=== PATIENT | male | born 1980 | race Caucasian/White ===

== ENCOUNTER → 2024-02-16 | Outpatient (REF) ==
[2024-02-18 12:12] LABS: HERPES ZOSTER, VARICELLA IgG 1.12 S/CO (>=1.00); RUBEOLA IgG ANTIBODY < 13.50 AU/mL (>16.49)
== END ==
LOC: M LAB 15:17
PROVIDERS: ATTEND Family Medicine
DX: Z02.1 Encounter for pre-employment examination (principal)

== ENCOUNTER 2024-03-02 10:12 | Emergency (ER) | payer SELFPAY ==
[2024-03-02] MEDS ORDERED: VENL150C43 PO (10:18)
[2024-03-02] MEDS ORDERED: CLEO300C2 PO (11:15)
[2024-03-02] MEDS ORDERED: CLEO150C PO (11:15)
[2024-03-02] MEDS: KETOROLAC 60MG 2ML VIAL IM ONE (11:27)
[2024-03-02 11:40] VITALS: BP 110/67; TEMP 98.8; O2SAT 99
== END 2024-03-02 11:53 | disposition home or self-care (01) ==
LOC: M ED 10:12
DX: K04.7 Periapical abscess without sinus (principal); F41.9 Anxiety disorder, unspecified; F32.A Depression, unspecified; Z79.2 Long term (current) use of antibiotics; Z79.899 Other long term (current) drug therapy
CPT/HCPCS: 96372; 99283; J1885